=== PATIENT | female | born 2000 | race Caucasian/White ===

== ENCOUNTER 2024-10-24 08:50 | Emergency (ER) | payer MEDICAID ==
[~2024-10-24] VITALS: Ht 157.5 cm; Wt 65.8 kg
[2024-10-24 09:15] LABS: EPITHELIAL CELLS, URINE 0 /lpf (0-1+); WHITE BLOOD CELLS, URINE 21-40 /HPF (0-5)
[2024-10-24 09:16] LABS: BACTERIA, URINE 1+ /hpf (negative); CASTS, URINE NONE SEEN \\lpf; COLLECTION TYPE, URINE CLEAN CATCH; CRYSTALS, URINE NONE SEEN (0-1+); REFLEX CULTURE, URINE Yes (No)
[2024-10-24] MEDS ORDERED: IBU600 MG PO (09:23)
[2024-10-24] MEDS ORDERED: PYRIDIUM200 MG PO (09:23)
[2024-10-24] MEDS ORDERED: MACROBID 100 M100 MG PO (09:23)
[2024-10-24] MEDS ORDERED: IBUPROFEN 600 MG TAB PO ONE (09:30)
[2024-10-24 09:31] VITALS: BP 115/76
== END 2024-10-24 09:31 | disposition home or self-care (01) ==
LOC: ED 08:50
PROVIDERS: Emergency Medicine
DX: N39.0 Urinary tract infection, site not specified (principal)
CPT/HCPCS: 81001; 84703; 87088; 99283; A9270

== ENCOUNTER 2024-11-07 10:23 | Emergency (ER) | payer MEDICAID ==
[~2024-11-07] VITALS: Ht 157.5 cm; Wt 67.0 kg
[~2024-11-07 10:23] MED LIST: IBU600 MG PO; MACROBID 100 M100 MG PO; PYRIDIUM200 MG PO
--- OUTSIDE RECORDS SUMMARY | 2024-11-07 10:29 | XMS ---
PreManage Notification: PRAVIN CHENEY Security [employer] Events No recent Security Events currently on file CRITERIA MET - [facility] - Visits in 30 Days [facility]ARE PROVIDERS [facility], [facility] Clinic[facility]: Federally Qualified 05/22/2024-Current [facility] ([facility] PHONE: [phone] SHANTE COVARRUBIAS [facility] 09/03/2022-Current PHONE: [phone] Alex has no Care Guidelines for this patient. EEmily VISIT COUNT (12 MO.) [address] [place] [address] TOTAL 6 NOTE: Visits indicate total known visits. ED/UCC VISIT TRACKING (12 MO.) 11/07/2024 10:23 [facility] [place] TYPE: Emergency COMPLAINT: - VAGINAL BLEEDING 10/24/2024 08:51 [facility] [place] TYPE: Emergency COMPLAINT: - URINE PROBLEM DIAGNOSES: - Dysuria - Urinary tract infection, site not specified 03/17/2024 10:35 [facility] [place] TYPE: Emergency DIAGNOSES: - Constipation, unspecified - Left lower quadrant pain - Flank Pain 02/19/2024 19:42 [facility] [place] TYPE: Emergency DIAGNOSES: - Dizziness and giddiness - Headache, unspecified - heradache;vertigo;loc 02/17 02/12/2024 17:06 [facility] [place] TYPE: Emergency DIAGNOSES: - Chest pain, unspecified - chest/side pain 11/26/2023 20:04 [facility] [place] TYPE: Emergency DIAGNOSES: - Missed - Unspecified abdominal pain - Vaginal Bleeding; 6 wks INPATIENT VISIT TRACKING (12 MO.) No inpatient visits to display in this time frame [email or web address]
[2024-11-07] MEDS ORDERED: NEXPLANON68 MG (10:43)
[2024-11-07] MEDS ORDERED: ONDANSETRON 4 MG TAB ODT SL ONE (10:45)
[2024-11-07] MEDS ORDERED: ACETAMINOPHEN 500 MG TAB PO ONE (10:45)
[2024-11-07 11:57] VITALS: BP 102/67
== END 2024-11-07 12:00 | disposition home or self-care (01) ==
LOC: ED 10:23
DX: N93.8 Other specified abnormal uterine and vaginal bleeding (principal); Z79.899 Other long term (current) drug therapy
CPT/HCPCS: 76830; 76856; 99284-25; A9270